=== PATIENT | female | born 1985 | race Caucasian/White ===

== ENCOUNTER 2023-08-10 10:14 | Emergency (ER) | payer OTHER ==
--- OUTSIDE RECORDS SUMMARY | 2023-08-10 10:18 | XMS REPORT | Continuity of Care Document ---
:1985 Author Organization [facility] t Address [address] [place] [id number] Care Team Providers Name Role Phone [email or web address] Attending Clinician Unavailable Delcid_[email or web address] Admitting Clinician Unavailable Payers Payer Name Policy Type Policy Number Effective Date Expiration Date S ource Problems This patient has no known problems. Allergies, Adverse Reactions, Alerts This patient has no known allergies or adverse reactions. Medications This patient has no known medications. Procedures This patient has no known procedures. Encounters Start End Encounter Admission Attending Care Care Encounter Source Date/Time Date/Time Type Type Clinicians Facility Department ID 2022-07-15 Inpatient [facility] [id number] [facility] 13:53:52 [id number] [place] 2022-05-12 Inpatient [facility] [id number] [facility] 15:48:04 [id number] [place] 2022-04-18 Inpatient [facility] [id number] [facility] 14:47:13 [id number] [place] 2022-04-06 Inpatient [facility] [id number] [facility] 10:52:22 [id number] [place] 2022-08-26 2022-08-26 Outpatient Delc[facility]Z_[place] VFP VFP [id number] [facility] 00:00:00 00:00:00 GDNU [id number] Family Practic e 2022-08-24 2022-08-24 Outpatient [facility]_[place] VFP VFP [id number] [facility] 00:00:00 00:00:00 GDNU [id number] Family Practic e Results This patient has no known results.
[2023-08-10 11:12] LABS: Absolute Lymphocytes (CBC) 1.7 K/uL (0.7-4.9); Hematocrit 37.3 % (36.0-45.0); Lymphocytes % 26.8 % (15.3-44.8); MCV 91.8 fL (80-100); MPV 8.7 fL (7.6-11.3); Platelets 286 thou/uL (152-406); RBC Red Blood Cell Count 4.06 M/uL (3.86-4.86)
--- NOTE | 2023-08-10 11:32 | RAD REPORT ---
EXAM DESCRIPTION: Petey Single View08/10/2023 11:27 am CLINICAL HISTORY: Chest pain COMPARISON: none FINDINGS: The lungs appear clear of acute infiltrate. The heart is normal size IMPRESSION: No acute abnormalities displayed
[2023-08-10 11:50] LABS: ALT/SGPT 21 U/L (13-56); Albumin 3.4 g/dL (3.4-5.0); Alkaline Phosphatase 25 U/L (45-117); BUN Blood Urea Nitrogen 10 mg/dL (7-18); Bicarbonate 29 mEq/L (21-32); Bilirubin Total 0.4 mg/dL (0.2-1.0); Glomerular Filtration Rate 101 ml/min (=/>90); Glucose Level 88 mg/dL (74-106); Protein, Total 6.5 g/dL (6.4-8.2); Sodium Level 136 mEq/L (136-145); Troponin High Sensitivity 4.3 pg/mL (<58.9)
[2023-08-10 11:53] LABS: AST/SGOT 18 U/L (15-37); Bilirubin Direct < 0.1 mg/dL (0-0.2); Bilirubin Indirect, Calculated ND mg/dL (0.2-0.8); Magnesium 1.9 mg/dL (1.6-2.4); Potassium 4.4 mEq/L (3.5-5.1)
--- NOTE | 2023-08-10 12:47 | EDPHYS ---
Physician Documentation [facility] Name: Suki Ferrari Age: 37 yrs Sex: Female : 1985 Arrival Date: 08/10/2023 Time: 10:14 Bed 10 Private MD: ED Physician Rafael Aviles HPI: 08/10 10:44 This 37 yrs old Female presents to ER via Unassigned with complaints of Chest Pain. ms3 10:47 37-year-old female with past medical history of anxiety presents to the emergency ms3 department for chest pain has been ongoing for 3 days. Patient states she was at the gym and the pain became worse when lifting weights. Patient rates her discomfort a 3/10 and states the pain does not radiate. Patient denies shortness of breath, nausea, vomiting. Patient denies taking hormones. Historical: - Allergies: 10:52 No Known Allergies; kd3 - Immunization history:: Adult Immunizations up to date. - Social history:: Smoking status: Patient denies any tobacco usage or history of. ROS: 10:47 Constitutional: Negative for fever, and chills. Neck: Negative for injury, pain, and ms3 swelling, 10:47 Respiratory: Negative for shortness of breath, cough, wheezing, and pleuritic chest pain, Abdomen/GI: Negative for abdominal pain, nausea, vomiting, diarrhea, and constipation, MS/Extremity: Negative for injury and deformity, Skin: Negative for injury, rash, and discoloration, 10:47 Cardiovascular: Positive for chest pain, 10:47 All other systems are negative, Exam: 10:47 Constitutional: This is a well developed, well nourished patient who is awake, alert, ms3 and in no acute distress. Head/Face: Normocephalic, atraumatic. Neck: Trachea midline, no cervical lymphadenopathy. Supple, full range of motion without nuchal rigidity, or vertebral point tenderness. No Meningismus. Chest/axilla: Normal chest wall appearance and motion. Nontender with no deformity. Cardiovascular: Regular rate and rhythm with a normal S1 and S2. No gallops, murmurs, or rubs. Normal PMI, no JVD. No pulse deficits. Respiratory: Lungs have equal breath sounds bilaterally, clear to auscultation and percussion. No rales, rhonchi or wheezes noted. No increased work of breathing, no retractions or nasal flaring. Abdomen/GI: Soft, non-tender, with normal bowel sounds. No distension or tympany. No guarding or rebound. No evidence of tenderness throughout. Skin: Warm, dry with normal turgor. Normal color with no rashes, no lesions, and no evidence of cellulitis. MS/ Extremity: Pulses equal, no cyanosis. Neurovascular intact. Full, normal range of motion. 11:18 ECG was reviewed by the Attending Physician. ms3 Vital Signs: 10:50 BP 105 / 75; Pulse 65; Resp 17; Temp 98.7(O); Pulse Ox 100% ; Weight 66.22 kg; Height 5 kd3 ft. 10 in. ; 12:55 BP 120 / 66; Pulse 97; Resp 17; Pulse Ox 99% on R/A; me1 10:50 Body Mass Index 20.95 (66.22 kg, 177.8 cm) kd3 MDM: 10:47 Differential diagnosis: abnormal EKG, acute myocardial infarction, coronary artery ms3 disease pulmonary embolus. Scoring Tools PERC Rule for PE Age > /= 50 No (0) HR > /= 100 No (0) O2 Sat Room Air < 95% No (0) Unilateral leg swelling No (0) Hemoptysis No (0) Recent surgery or trauma </= 4 weeks ago, requiring treatment with General Anesthesia No (0) Prior PE or DVT No (0) Hormone use No (0). 11:18 Patient medically screened. ms3 12:46 HEART Score: History: Slightly Suspicious (0), ECG: Normal (0), Age: < or = 45 years ms3 (0), Risk Factors: No Risk Factors Known (0), Troponin: < or = 1 x Normal Limit (0), Total Score = 0. Data reviewed: vital signs, nurses notes, lab test result(s), EKG, radiologic studies, and as a result, I will discharge patient. Consideration of Admission/Observation Escalation of care including admission/observation considered. Heart score 0. Independent interpretation of the following test(s) in the Emergency Department EKG: See my EKG interpretation above X-Ray: My interpretation is Chest x-ray image reviewed by me does not reveal pneumonia or pulmonary edema. Counseling: I had a detailed discussion with the patient and/or guardian regarding the historical points, exam findings, and any diagnostic results supporting the discharge/admit diagnosis, lab results, radiology results, the need for outpatient follow up, to return to the emergency department if symptoms worsen or persist or if there are any questions or concerns that arise at home. Special discussion: Based on the patient's history, exam, and Dx evaluation, there is no indication for emergent intervention or inpatient Tx. It is understood by the patient/guardian that if the Sx's persist or worsen they need to return immediately for re-evaluation. ED course: Discussed labs, EKG, chest x-ray findings with patient. Patient to follow-up with Dr. Murray in 2 to 3 days. Patient understands agrees with plan. All questions were answered. Return precautions discussed include worsening symptoms, or any other concerns. 08/10 10:38 Order name: Basic Metabolic Panel; Complete Time: 12:05 ms3 08/10 10:38 Order name: CBC with Diff; Complete Time: 11:18 ms3 08/10 10:38 Order name: LFT's; Complete Time: 12:05 ms3 08/10 10:38 Order name: Magnesium; Complete Time: 12:05 ms3 08/10 10:38 Order name: Troponin HS; Complete Time: 12:05 ms3 08/10 10:38 Order name: XRAY Chest (1 view); Complete Time: 11:48 ms3 08/10 10:38 Order name: EKG; Complete Time: 10:39 ms3 08/10 10:38 Order name: Cardiac monitoring; Complete Time: 11:12 ms3 08/10 10:38 Order name: EKG - Nurse/Tech; Complete Time: 10:50 ms3 08/10 10:38 Order name: IV Saline Lock; Complete Time: 11:12 ms3 08/10 10:38 Order name: Labs collected and sent; Complete Time: 11:12 ms3 08/10 10:38 Order name: O2 Per Protocol; Complete Time: 11:12 ms3 08/10 10:38 Order name: O2 Sat Monitoring; Complete Time: 11:12 ms3 08/10 11:13 Order name: Labs - recollect needed: LT GREEN; Complete Time: 11:54 bc6 EC:18 Rate is 62 beats/min. Rhythm is regular. QRS Carpenter is Normal. CT interval is normal. QRS ms3 interval is normal. QT interval is normal. Clinical impression: Normal ECG. Interpreted by me. Reviewed by me. Administered Medications: No medications were administered Disposition Summary: 08/10/23 12:46 Discharge Ordered Notes: Location: Home ms3 Condition: Stable ms3 Diagnosis - Chest pain, unspecified ms3 Followup: ms3 - With: Rico Murray MD - When: 2 - 3 days - Reason: Recheck today's complaints Discharge Instructions: - Discharge Summary Sheet ms3 - Nonspecific Chest Pain, Adult ms3 Forms: - Medication Reconciliation Form ms3 - Thank You Letter ms3 - Antibiotic Education ms3 - Prescription Opioid Use ms3 - Patient Portal Instructions ms3 - Leadership Thank You Letter ms3 Signatures: Dispatcher [employer] EDRafael Wesley DO DO ms3 Fabby Taylor, RN RN kd3 Liza Coffey bc6
--- NOTE | 2023-08-10 12:47 | ER ---
Nurse's Notes [facility] Name: Suki Ferrari Age: 37 yrs Sex: Female : 1985 Arrival Date: 08/10/2023 Time: 10:14 Bed 10 Private MD: Diagnosis: Chest pain, unspecified Presentation: 08/10 10:50 Chief complaint: Patient states: I have had chest pain on and off for 3 days and today kd3 i was working out and started having pain again. Coronavirus screen: Vaccine status: Patient reports being unvaccinated. Ebola Screen: No symptoms or risks identified at this time. Initial Sepsis Screen: Does the patient meet any 2 criteria? No. Patient's initial sepsis screen is negative. Does the patient have a suspected source of infection? No. Patient's initial sepsis screen is negative. Risk Assessment: Do you want to hurt yourself or someone else? Patient reports no desire to harm self or others. Onset of symptoms was August 10, 2023. 10:50 Method Of Arrival: Ambulatory kd3 10:50 Acuity: GRAYSON 3 kd3 Triage Assessment: 10:52 General: Appears in no apparent distress. Behavior is calm, cooperative. Pain: kd3 Complains of pain in chest. Cardiovascular: Capillary refill < 3 seconds Patient's skin is warm and dry. Historical: - Allergies: 10:52 No Known Allergies; kd3 - Immunization history:: Adult Immunizations up to date. - Social history:: Smoking status: Patient denies any tobacco usage or history of. Screenin:00 [facility] ED Fall Risk Assessment (Adult) History of falling in the last 3 months, me1 including since admission No falls in past 3 months (0 pts) Confusion or Disorientation No (0 pts) Intoxicated or Sedated No (0 pts) Impaired Gait No (0 pts) Mobility Assist Device Used No (0 pt) Altered Elimination No (0 pt) Score/Fall Risk Level 0 - 2 = Low Risk. Abuse screen: Denies threats or abuse. Nutritional screening: No deficits noted. Tuberculosis screening: No symptoms or risk factors identified. Assessment: 12:00 General: Appears comfortable, well groomed, well developed, well nourished, Behavior is me1 calm, cooperative, appropriate for age. Pain: Complains of pain in chest Pain does not radiate. Pain at worst was 3 out of 10 on a pain scale. Quality of pain is described as tight Pain began 2-3 days ago. Is intermittent, Aggravated by exercise. Neuro: Level of Consciousness is awake, alert, obeys commands, Oriented to person, place, time, situation, Appropriate for age. Cardiovascular: Capillary refill < 3 seconds Patient's skin is warm and dry. Respiratory: Airway is patent Respiratory effort is even, unlabored, Respiratory pattern is regular, symmetrical. 12:00 General: reports CP that started 2-3 days ago that comes and goes. Started again today me1 while working out. Does not radiate. At worst pain was 3/10 and feels "tight". Does c/o sob while cp is present. Denies n/v. . Vital Signs: 10:50 BP 105 / 75; Pulse 65; Resp 17; Temp 98.7(O); Pulse Ox 100% ; Weight 66.22 kg; Height 5 kd3 ft. 10 in. ; 12:55 BP 120 / 66; Pulse 97; Resp 17; Pulse Ox 99% on R/A; me1 10:50 Body Mass Index 20.95 (66.22 kg, 177.8 cm) kd3 ED Course: 10:17 Patient arrived in ED. mr 10:19 Rafael Aviles DO is Attending Physician. ms3 10:49 Fabby Taylor, ROX is Primary Nurse. kd3 10:52 Triage completed. kd3 10:52 Arm band placed on right wrist. kd3 11:28 XRAY Chest (1 view) In Process Unspecified. EDMS 12:00 Patient has correct armband on for positive identification. Provided Education on: POC. me1 Verbalized understanding.. Client placed on continuous cardiac and pulse oximetry monitoring. NIBP monitoring applied. panel monitor on. 12:00 No provider procedures requiring assistance completed. Patient maintains SpO2 me1 saturation greater than 95% on room air. 12:46 Rico Murray MD is Referral Physician. ms3 12:55 IV discontinued, intact, bleeding controlled, No redness/swelling at site. Pressure me1 dressing applied. Administered Medications: No medications were administered Medication: 12:00 VIS not applicable for this client. me1 Outcome: 12:46 Discharge ordered by . ms3 12:56 Discharged to home ambulatory, me1 12:56 Condition: stable 12:56 Discharge instructions given to patient, Instructed on discharge instructions, follow up and referral plans. Demonstrated understanding of instructions, follow-up care, 12:57 Patient left the ED. me1 Signatures: Dispatcher [employer] Edwige Morales, Reg Reg mr Rafael Aviles, DO ms3 Fabby Taylor, RN RN kd3 Paige Collins RN RN me1
[2023-08-10 13:02] VITALS: TEMP 98.7
[2023-08-10 13:03] VITALS: BP 120/66; O2SAT 99
--- NOTE | 2023-08-12 14:15 | EKG ---
Test Date: 2023-08-10 Test Time: 11:45:57 Research Anthropologist: FORD MEASUREMENT RESULTS: Intervals: Rate: 62 DC: 110 QRSD: 78 QT: 418 QTc: 424 Emily: P: 82 DC: 110 QRS: 74 T: 75 INTERPRETIVE STATEMENTS: Sinus rhythm with sinus arrhythmia with short DC Otherwise normal ECG Compared to ECG 12/30/2004 01:29:00 No significant changes Electronically Signed On 08-12-23 14:08:50 SOLUTION DESIGN ENGINEER by Rico Murray
== END 2023-08-10 12:57 | disposition home or self-care (01) ==
LOC: ER 10:14
DX: R07.9 Chest pain, unspecified (principal)
CPT/HCPCS: 36415; 71045; 80048; 80076; 83735; 84484; 85025; 93005; 99284